=== PATIENT | male | born 1995 | race Caucasian/White ===

== ENCOUNTER 2021-07-16 19:55 | Emergency (ER) | payer OTHER ==
[~2021-07-16] VITALS: Ht 182.9 cm; Wt 93.4 kg
[2021-07-16 23:45] VITALS: BP 141/82
== END 2021-07-17 00:12 | disposition home or self-care (01) ==
LOC: ER 19:55
DX: S93.401A Sprain of unspecified ligament of right ankle, initial encounter (principal); Z88.0 Allergy status to penicillin; X58.XXXA Exposure to other specified factors, initial encounter; Y93.89 Activity, other specified; Y92.89 Other specified places as the place of occurrence of the external cause; Y99.0 Civilian activity done for income or pay